=== PATIENT | male | born 1970 | race African-American/Black ===

== ENCOUNTER 2024-03-30 23:04 | Emergency (ER) | payer MEDICAID ==
[~2024-03-30] VITALS: Ht 177.8 cm; Wt 82.0 kg
[~2024-03-30 23:04] MED LIST: ALBU18HF2 IH; ASPI-1406 PO; CLOP-31 PO; GABA-532 PO; IBUP-2029 PO; IPRA3AMP9 HHN; LEVO100C4 PO; LIP40 PO; METH-773 PO; METO25TA6 PO; P20 MT; SALM50DI INH
[2024-03-30] MEDS: IPRATROPIUM BROMIDE (0.02%) 0.5MG/2.5ML NEB HHN STA (23:33)
[2024-03-30] MEDS: ALBUTEROL (0.083%) 2.5MG/3ML NEB HHN STA (23:34)
[2024-03-30 23:39] VITALS: PULSE 100; RESP 20; O2SAT 99
[2024-03-30] MEDS: MAGNESIUM 2 G PREMIX 50 ML IV ONE (23:42)
[2024-03-30] MEDS: METHYLPREDNISOLONE SOD SUCC 125MG/2ML (ACT-O-VIAL) IV STA (23:42)
[2024-03-30 23:51] LABS: BASOPHILS % 0.2 % (0.0-2.0); EOSINOPHILS % 0.1 % (0.0-5.0); HEMATOCRIT. 40.6 % (42.0-52.0); HEMOGLOBIN. 13.8 g/dL (14.0-18.0); LYMPHOCYTES % 20.5 % (20.0-50.0); MEAN CORPUSCULAR HEMOGLOBIN 28.5 pg (28.0-32.0); MEAN CORPUSCULAR HGB CONC 34.1 g/dL (31.0-37.0); MEAN CORPUSCULAR VOLUME 83.7 fL (80.0-94.0); MEAN PLATELET VOLUME 8.5 fl (7.4-10.4); MONOCYTES % 12.6 % (2.0-8.0); NEUTROPHILS % 66.6 % (40.0-76.0); PLATELET 227 x1000/uL (130-400); RED BLOOD CELL COUNT 4.85 mill/uL (4.7-6.1); RED CELL DISTRIBUTION WIDTH 14.5 % (11.6-14.6); WHITE BLOOD COUNT 10.6 x1000/uL (4.5-11.0)
[2024-03-31 00:02] LABS: CHLORIDE 103 mEq/L (98-107); POTASSIUM 3.6 mEq/L (3.5-5.1); SODIUM 140 mEq/L (136-145)
[2024-03-31 00:03] LABS: CARBON DIOXIDE 31 mEq/L (21-32)
[2024-03-31 00:08] LABS: CREATININE 1.2 mg/dL (0.6-1.3); GLUCOSE 95 mg/dL (70-105); UREA NITROGEN BLOOD 11 mg/dL (9-23)
[2024-03-31 00:09] LABS: TROPONIN I HIGH SENSITIVITY 9 ng/L (3.0-53)
[2024-03-31 00:11] LABS: ETHANOL BLOOD < 10 mg/dL (<10)
[2024-03-31 01:19] VITALS: BP 145/100; PULSE 99; RESP 17; TEMP 36.72516; O2SAT 99
== END 2024-03-31 01:37 | disposition home or self-care (01) ==
LOC: ER 23:38
DX: J44.1 Chronic obstructive pulmonary disease with (acute) exacerbation (principal); I10 Essential (primary) hypertension; Z87.891 Personal history of nicotine dependence; Z79.899 Other long term (current) drug therapy; Z79.82 Long term (current) use of aspirin; Z79.52 Long term (current) use of systemic steroids; Z79.51 Long term (current) use of inhaled steroids; Z79.02 Long term (current) use of antithrombotics/antiplatelets
CPT/HCPCS: 80048; 80320; 83880; 85025; 84484; 36415; 71045; 94640; 93005; 96365; 96375; 99285; J3475; J2919; Z7610 ×3; G0480